=== PATIENT | male | born 1940 | race Caucasian/White ===

== ENCOUNTER 2019-12-12 12:26 | Emergency (ER) | payer MEDICARE ==
[2019-12-12] MEDS ORDERED: amLODIPine 10 MG Tab PO ONE (12:51)
--- NOTE | 2019-12-12 12:57 | EDM.PDOC ---
ED HPI GENERAL MEDICAL PROBLEM - General Chief Complaint: Medication Administration Stated Complaint: NEEDS BP MEDICATIONS Time Seen by Provider: 12/12/19 12:40 Source of Information: Reports: Patient History Limitations: Reports: No Limitations - History of Present Illness INITIAL COMMENTS - FREE TEXT/NARRATIVE: The patient present for medications. He is visiting family in town and he forgot his amlodopine and atorvastatin. He has no symptoms such as headache, fever, chills, cough, chest pain, shortness of breath, abdominal pain, nausea or vomiting. Onset: Gradual Duration: Day(s): Improves with: Reports: None Worsens with: Reports: None Associated Symptoms: Reports: No Other Symptoms - Related Data Allergies Allergy/AdvReac Type Severity Reaction Status Date / Time No Known Allergies Allergy Verified 12/12/19 12:41 Home Meds: Home Meds amLODIPine Besylate [Amlodipine Besylate] 20 mg PO DAILY #10 tablet 12/12/19 [Rx] amLODIPine [Norvasc] 20 mg PO DAILY 12/12/19 [History] atorvaSTATin [Lipitor] 40 mg PO BEDTIME 12/12/19 [History] atorvaSTATin [Lipitor] 40 mg PO BEDTIME #5 tab 12/12/19 [Rx] Past Medical History Cardiovascular History: Reports: High Cholesterol, Hypertension Social & Family History - Tobacco Use Smoking Status *Q: Never Smoker Second Hand Smoke Exposure: No - Caffeine Use Caffeine Use: Reports: None - Recreational Drug Use Recreational Drug Use: No ED ROS GENERAL - Review of Systems Review Of Systems: See Below Constitutional: Reports: No Symptoms HEENT: Reports: No Symptoms Respiratory: Reports: No Symptoms Cardiovascular: Reports: No Symptoms Endocrine: Reports: No Symptoms GI/Abdominal: Reports: No Symptoms : Reports: No Symptoms Musculoskeletal: Reports: No Symptoms Skin: Reports: No Symptoms ED EXAM, GENERAL - Physical Exam Exam: See Below Exam Limited By: No Limitations General Appearance: Alert, No Apparent Distress Ears: Normal External Exam Nose: Normal Inspection Head: Atraumatic, Normocephalic Neck: Normal Inspection Respiratory/Chest: No Respiratory Distress, Lungs Clear, Normal Breath Sounds Cardiovascular: Regular Rate, Rhythm, No Edema, No Murmur GI/Abdominal: Soft, Non-Tender, No Organomegaly, No Mass Extremities: Normal Inspection Neurological: Alert, Oriented, No Motor/Sensory Deficits Course - Vital Signs Last Recorded V/S: Last Vital Signs Temp 98 F 07/04/20 12:38 Pulse 75 12/12/19 12:38 Resp 16 12/12/19 12:38 BP 171/76 H 12/12/19 12:38 Pulse Ox 93 L 12/12/19 12:38 - Orders/Labs/Meds Orders: Active Orders 24 hr Category Date Time Status amLODIPine [Norvasc] Med 12/12/19 12:51 Once 20 mg PO ONETIME ONE - Re-Assessments/Exams Free Text/Narrative Re-Assessment/Exam: 12/12/19 12:54 I ordered amlodopine 20mg by mouth. I will send prescriptions to [facility]. Departure - Departure Time of Disposition: 12:55 Disposition: Home, Self-Care 01 Condition: Good Clinical Impression: Hypertension Qualifiers: Hypertension type: essential hypertension Qualified Code(s): I10 - Essential (primary) hypertension - Discharge Information *PRESCRIPTION DRUG MONITORING PROGRAM REVIEWED*: Not Applicable *COPY OF PRESCRIPTION DRUG MONITORING REPORT IN PATIENT TK: Not Applicable Prescriptions: amLODIPine Besylate [Amlodipine Besylate] 20 mg PO DAILY #10 tablet atorvaSTATin [Lipitor] 40 mg PO BEDTIME #5 tab Referrals: PCP,Not In Area [Primary Care Provider] - Additional Instructions: Take your medications as prescribed. Please return if you are worse. Sepsis Event Note (ED) - Evaluation Sepsis Screening Result: No Definite Risk - Focused Exam Vital Signs: Vital Signs Temp Pulse Resp BP Pulse Ox 12/12/19 12:38 98 F 75 16 171/76 H 93 L - My Orders Last 24 Hours: My Active Orders 12/12/19 12:51 amLODIPine [Norvasc] 20 mg PO ONETIME ONE - Assessment/Plan Last 24 Hours: My Active Orders 12/12/19 12:51 amLODIPine [Norvasc] 20 mg PO ONETIME ONE
== END 2019-12-12 13:08 | disposition home or self-care (01) ==
LOC: JD.ED 12:26
DX: I10 Essential (primary) hypertension (principal); E78.00 Pure hypercholesterolemia, unspecified; Z79.899 Other long term (current) drug therapy
CPT/HCPCS: 99283; A9270